=== PATIENT | female | born 1955 | race Caucasian/White ===

== ENCOUNTER 2021-01-05 21:46 | Emergency (ER) | payer OTHER, BC, SELFPAY ==
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
[2021-01-05 21:40] VITALS: BP 152/82; PULSE 97; RESP 17; TEMP 36.6; O2SAT 87
--- NOTE | 2021-01-05 21:49 | ECG_ITS ---
Measurements Intervals [place] Rate: 86 P: 40 ND: 168 QRS: 14 QRSD: 88 T: 34 QT: 327 QTc: 392 Interpretive Statements SINUS RHYTHM BASELINE ARTIFACT- I, II, III, AVR, AVL, AVF, V1, V3-V6 NORMAL ECG Electronically Signed On 01-06-2021 6:06:58 AIRPLANE TUBE BUILDER by Bao Sánchez D.O.
[2021-01-05 22:18] LABS: Alveolar/Arterial O2 Gradient 5.8 mmHg; Base Excess ABG -1.4 mEq/l (+/-2.0); Device ROOM AIR; Fractional Inspired Oxygen 21 %; HCO3 ABG 21.9 mEq/l (22.0-26.0); Modified Allen's Test Pass; Oxygen Content ABG 13.6 %vol (16.0-22.0); Oxygen Saturation ABG 98.2 % (95.0-100.0); Oxyhemoglobin 92.9 % THb (90.0-100.0); PCO2 ABG 31.6 mmHg (35.0-45.0); PO2 ABG 106.1 mmHg (80.0-100.0); PO2 FiO2 Ratio Arterial Blood 5.05 %; Site Drawn LEFT RADIAL; Total Hemoglobin 10.3 g/dL (12.0-18.0); pH ABG 7.458 (7.350-7.450)
[2021-01-05] MEDS: SODIUM CHLORIDE 0.9% IV 1,000 ML 999 ML IV CONT (22:20)
[2021-01-05 22:22] LABS: Basophils Absolute Auto 0.1 K/mm3 (0.0-0.1); Basophils Percent Auto 0.7 % (0.2-1.2); Eosinophils Absolute Auto 0.1 K/mm3 (0-0.3); Eosinophils Percent Auto 1.3 % (0-4.4); Hemoglobin 9.7 g/dL (12.0-15.0); Immature Granulocyte Absolute 0.09 K/mm3 (0.00-0.031); Lymphocytes Absolute Auto 0.51 K/mm3 (0.9-3.2); Lymphocytes Percent Auto 5.7 % (18.3-44.2); Mean Corpuscular HGB Conc 34.6 g/dl (32-36); Mean Corpuscular Hemoglobin 33.4 pg (26-34); Mean Corpuscular Volume 96.6 fl (80-100); Mean Platelet Volume 8.8 fl (7.4-10.4); Monocytes Absolute Auto 0.8 K/mm3 (0.1-0.6); Monocytes Percent Auto 8.8 % (2.6-8.5); Neutrophils Absolute Auto 7.4 K/mm3 (1.3-6.7); Neutrophils Percent Auto 82.5 % (45.5-73.1); Platelet Count Result 359 k/mm3 (150-375); Red Cell Distribution Width 16.9 % (11.5-14.5)
[2021-01-05 22:32] LABS: Alanine Aminotransferase 9 U/L (4-35); Alkaline Phosphatase 97 U/L (38-126); Anion Gap 11 mmol/L (8-16); Aspartate Amino Transferase 20 U/L (14-36); Bilirubin,Total 0.4 mg/dL (0.2-1.3); Blood Urea Nitrogen 5 mg/dL (7-17); Calcium 9.8 mg/dL (8.4-10.2); Carbon Dioxide 24 mmol/L (22-30); Chloride 97 mmol/L (98-107); Estimated CRCL calculation 66 ml/min; Estimated Glomerular Filt Rate > 60; Glucose 148 mg/dL (65-110); Potassium 3.7 mmol/L (3.4-5.0); Sodium 132 mmol/L (137-145)
[2021-01-05 22:33] LABS: Ethanol < 10 mg/dL (<10)
[2021-01-05 22:44] LABS: Troponin I < 0.012 ng/mL (0.000-0.034)
[2021-01-05 22:47] LABS: Add Urine Microscopic? YES; Appearance Urine Cloudy (Clear); Bacteria Urine Trace /hpf; Bilirubin Urine Negative (Negative); Blood Urine Negative (Negative); Color Urine Yellow (Yellow); Glucose Urine UA Negative (Negative); Ketones Urine Trace mg/dL (Negative); Leukocyte Esterase Ur Negative LEU/UL (Negative); Mucus Urine Rare /lpf; Nitrate Urine Negative (Negative); Protein Urine Negative (Negative); RBC Urine 0-2 /hpf (0-2); Specific Grav Ur 1.003 (1.001-1.035); Squamous Epithelial Cell Urine Few /hpf (Few); Urobilinogen Urine Negative mg/dL (<2.0); WBC Urine 0-3 /hpf
[2021-01-05 22:52] LABS: Prothrombin Time 13.5 Seconds (11.1-14.7)
[2021-01-05 22:53] LABS: Amphetamine Screen Urine Negative (Negative); Barbiturate Screen Urine Negative (Negative); Benzodiazepines Screen Urine Positive (Negative); Cannabinoid Screen Urine Negative (Negative); Cocaine Screen Urine Negative (Negative); Methadone Screen Urine Negative (Negative); Opiate Screen Urine Positive (Negative); Phencyclidine Screen Urine Negative (Negative)
[2021-01-05 22:53] LABS: Partial Thromboplastin Time 46.8 SECONDS (22.3-36.8)
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
[2021-01-06 01:08] VITALS: BP 100/57; PULSE 57; RESP 16; O2SAT 99
[2021-01-06 01:43] VITALS: BP 132/58; PULSE 61; RESP 17; O2SAT 100
[2021-01-06 02:02] LABS: Troponin I 0.019 ng/mL (0.000-0.034)
[2021-01-06 02:08] VITALS: BP 125/76; PULSE 65; RESP 14; O2SAT 99
[2021-01-06 04:48] VITALS: BP 139/72; PULSE 64; RESP 17; O2SAT 99
[2021-01-06 06:07] LABS: EDCOVIDSCREEN Negative (Negative)
--- NOTE | 2021-01-06 07:00 | PC.NURSE ---
spoke with andrew with [facility] transfer center, pt is accepted. waiting for a bed at this time.
--- NOTE | 2021-01-06 08:10 | PC.NURSE ---
made contact with [facility] and [facility] to transfer pt [place] [facility] [place] [id number]. both companies decline. [facility] accepted with an eta of [id number] and [facility] is aware of where pt is being transferred to
[2021-01-06 08:20] VITALS: BP 140/74; PULSE 80; RESP 18; O2SAT 100
--- NOTE | 2021-01-06 08:29 | PC.NURSE ---
Odilia from [facility] called to inform that pt does have a bed. room number 13007
--- NOTE | 2021-01-06 09:24 | PC.NURSE ---
made contact with [employer] for a new eta [id number]
--- NOTE | 2021-01-06 09:48 | PC.NURSE ---
made contact with [employer] for a new eta for transfer. eta 15 minutes
--- NOTE | 2021-01-06 09:56 | PC.NURSE ---
[facility] has arrived and is aware that pt is going [place] [facility] [place] [id number]
[2021-01-06 10:01] VITALS: PULSE 92; RESP 16; O2SAT 97
--- NOTE | 2021-01-06 10:39 | PC.NURSE ---
Pt report was called by prior RN, Home.
== END 2021-01-06 10:39 | disposition short-term general hospital (02) ==
PROVIDERS: Emergency Medicine; Emergency Provider Emergency Medicine
DX: R41.82 Altered mental status, unspecified (principal); Z20.822 Contact with and (suspected) exposure to COVID-19
CPT/HCPCS: 36415; 36600; 51701; 70450; 71045; 71260; 72125; 74177; 80053; 80307; 81001; 82805; 83605; 84484; 85025; 85610; 85730; 87426; 93005; 96360; 99285; C9803; J7030; Q9967